=== PATIENT | female | born 1935 | race Caucasian/White ===

== ENCOUNTER 2023-02-13 15:49 | Emergency (ER) | payer MEDICARE, OTHER, SELFPAY ==
[2023-02-13] VITALS (17 sets, daily range): BP systolic 89–112; BP diastolic 49–77; PULSE 59–69; RESP 20; TEMP 36.7; O2SAT 92–96; BMI 24.0
--- NOTE | 2023-02-13 15:55 | ED_ITS ---
HPI - Syncope General Time Seen by Provider: 15:55 Date Seen: 02/13/23 Chief Complaint: Syncope/Fainted Stated Complaint: TIA Time Seen by Provider: 02/13/23 15:54 Source: patient, EMS, RN notes reviewed and old records reviewed Mode of arrival: EMS Limitations: altered mental status History of Present Illness HPI narrative: 88-year-old female who presents from [facility] for syncopal episode. Not much information is available as patient came unaccompanied but apparently had a syncopal episode about 90 minutes prior to ER evaluation, accompanied by about 10 minutes of so slurred speech by report. She has baseline neurologic and cognitive deficits and by report is back to her baseline now. No external sign of trauma and patient has no reported fall. Related Data Previous Rx's Medication Instructions Recorded cefdinir 300 mg capsule 300 mg PO BID 7 days #14 caps 02/13/23 Allergies Allergy/AdvReac Type Severity Reaction Status Date / Time No Known Allergies Allergy Verified 02/13/23 16:57 Review of Systems Status of ROS: Reports: 10 or more systems reviewed and unremarkable except as noted in History and below PFSH PFSH Social History Smoking Status: Former smoker Do you use any of these nicotine containing products: None How often do you have a drink containing alcohol: monthly or less How many standard drinks containing alcohol do you have on a typical day: 1 or 2 How often do you have six or more drinks on one occasion: Never AUDIT-C Alcohol total score: 1 Non-prescribed substance use: denies use Exam Narrative: Exam Narrative: General: Well-developed and well-nourished, no acute distress Head: Atraumatic and normocephalic Eyes: Pupils are equal reactive, extraocular motions intact, conjunctiva clear ENT: External nose and ears are normal, posterior pharynx without erythema or exudate Neck: No midline cervical tenderness, full spontaneous range of motion the neck, trachea midline, no adenopathy Heart: Regular rate and rhythm no murmurs or thrills Lungs: Clear to auscultation bilaterally without wheezes or crackles Abdomen: Soft, nontender, nondistended with active bowel sounds Musculoskeletal: No tenderness, deformity, or edema Neurologic: Awake alert, occasionally answers questions appropriately. Follows commands without difficulty, no weakness or pronator drift, no lower extremity drift. Dysconjugate gaze with lateral deviation of the right eye, also right facial droop. Both of these are reported to be chronic. Psych: Mood and affect are appropriate Skin: No rashes Const: Vital Signs, click to edit/add: Vital Signs - 24 hr 02/13/23 15:54 02/13/23 16:19 02/13/23 16:22 Temperature 98.1 F Pulse Rate 63 Pulse Rate [Pulse Oximeter] 59 L Respiratory Rate 20 Blood Pressure 89/54 L Blood Pressure [Le ft Upper Arm] 90/49 L Pulse Oximetry 94 93 Oxygen Delivery Me thod Room Air 02/13/23 16:45 02/13/23 16:50 02/13/23 16:53 Temperature Pulse Rate 69 59 L 59 L Pulse Rate [Pulse Oximeter] Respiratory Rate Blood Pressure 112/61 Blood Pressure [Le ft Upper Arm] Pulse Oximetry 95 95 94 Oxygen Delivery Me thod 02/13/23 17:00 02/13/23 17:02 02/13/23 17:03 Temperature Pulse Rate 66 62 62 Pulse Rate [Pulse Oximeter] Respiratory Rate Blood Pressure 93/56 L Blood Pressure [Le ft Upper Arm] Pulse Oximetry 93 93 94 Oxygen Delivery Me thod 02/13/23 17:15 02/13/23 17:17 02/13/23 17:30 Temperature Pulse Rate 61 63 61 Pulse Rate [Pulse Oximeter] Respiratory Rate Blood Pressure 101/49 L Blood Pressure [Le ft Upper Arm] Pulse Oximetry 96 95 94 Oxygen Delivery Me thod 02/13/23 17:32 02/13/23 17:52 02/13/23 17:54 Temperature Pulse Rate 66 65 Pulse Rate [Pulse Oximeter] Respiratory Rate Blood Pressure 99/52 L 112/68 Blood Pressure [Le ft Upper Arm] Pulse Oximetry 92 94 Oxygen Delivery Mo thod Course Course Hospital Course: Patient seen and examined, prior records reviewed. Patient presents today from [facility] with report of syncopal episode, no report of fall and no external signs of trauma. Patient has no complaints and no reported recent illness. Labs ordered along with head CT, EKG. Reevaluation(s) Time of Reevaluation #1: 18:38 Reevaluation #1: Labs independently interpreted by me with normal white blood cell count, slightly low hemoglobin which is stable for the patient, reassuring basic panel, negative troponin. Urinalysis is pending. Chest x-ray independently interpreted by me is negative for acute findings. CT scan of the head independently interpreted by me is negative for acute pathology. Patient stable for discharge with improvement in blood pressure after IV fluids. Time of Reevaluation #2: 19:32 Reevaluation #2: Urinalysis independently interpreted by me is consistent with infection, Rocephin IV will be given and patient will be discharged on Omnicef pending cultures. Stable for discharge, has been up and ambulating in the department without difficulty. Vital Signs Vital signs: Initial Vital Signs Temperature 98.1 F 02/13/23 15:54 Temperature Source Temporal Artery Scan 02/13/23 15:54 Pulse Rate 59 L 02/13/23 15:54 Respiratory Rate 02/13/23 15:54 Blood Pressure 90/49 L 02/13/23 15:54 Blood Pressure Mean 62 L 02/13/23 15:54 Blood Pressure Position Supine 02/13/23 15:54 Pulse Oximetry 94 02/13/23 15:54 Oxygen Delivery Method Room Air 02/13/23 15:54 Vital Signs Temperature 98.1 F 02/13/23 15:54 Pulse Rate 59 L 02/13/23 15:54 Respiratory Rate 02/13/23 15:54 Blood Pressure 90/49 L 02/13/23 15:54 Pulse Oximetry 94 02/13/23 15:54 Oxygen Delivery Method Room Air 02/13/23 15:54 Temperature 98.1 F 02/13/23 15:54 Pulse Rate 65 02/13/23 17:54 Respiratory Rate 02/13/23 15:54 Blood Pressure 112/68 02/13/23 17:54 Pulse Oximetry 94 02/13/23 17:54 Oxygen Delivery Method Room Air 02/13/23 15:54 MDM - Syncope Lab Data Labs: Lab Results 02/13/23 02/13/23 Range/Units 16:22 19:05 WBC 9.33 (4.50-11.00) K/uL RBC 3.82 L (4.30-5.90) m/uL Hgb 12.1 L (13.5-17.5) gm/dL Hct 37.6 (37.0-53.0) % MCV 98 (80-100) fL MCH 32 (26-34) pg MCHC 32 (32-36) gm/dL RDW Coeff of Silvano 12.6 (11.5-15.5) % Plt Count 293 (140-440) K/uL Neut % (Auto) 61.0 (42.0-72.0) % Lymph % (Auto) 22.5 (20-44) % [place] % (Auto) 10.6 (0.0-11.0) % Eos % (Auto) 5.3 (0.0-7.0) % Baso % (Auto) 0.5 (0.0-3.0) % Neut # (Auto) 5.69 (1.7-7.0) K/uL Lymph # (Auto) 2.10 (0.90-2.90) K/uL [place] # (Auto) 1.00 H (0.00-0.90) K/UL Eos # (Auto) 0.49 (0.00-0.50) K/uL Baso # (Auto) 0.05 (0.00-0.30) K/uL Abs Immat Gran (auto) 0.01 (0.00-0.30) K/uL Imm/Tot Granulo (auto) 0.1 % Sodium 140 (135-149) mmol/L Potassium 4.0 (3.6-5.1) mmol/L Chloride 106 (96-114) mmol/L Carbon Dioxide 28 (20-32) mmol/L BUN 25 (7-30) mg/dL Creatinine 1.5 (0.5-1.5) mg/dL Estimated Creat Clear 23.25 Estimated GFR 34 ml/min Glucose 99 (60-115) mg/dL Lactate 1.4 (0.5-1.9) mmol/L Calcium 8.8 (8.4-10.6) mg/dL Magnesium 1.8 (1.5-2.6) mg/dL Urine Color Dark yellow (Yellow) Urine Appearance Cloudy A (Clear) Urine pH 5.5 (5.0-8.5) Ur Specific [place] 1.025 (1.000-1.030) Urine Protein Trace A (Negative) Urine Glucose (UA) Negative (Negative) Urine Ketones 1+ A (Negative) Urine Blood Trace-intact A (Negative) Urine Nitrite Positive A (Negative) Urine Bilirubin Negative (Negative) Urine Urobilinogen >=8.0 A (0.2-1.0) Ur Leukocyte Esterase 2+ A (Negative) Urine RBC 0-2 (0-2) Urine WBC 50-100 A (0-5) Ur Squamous Epith Cells Moderate A (None-Few) Urine Bacteria Many A (None) ECG Data Attestation: I personally reviewed and interpreted this ECG as follows: ECG interpretation date: 02/13/23 ECG interpretation time: 14:51 Prior ECG tracings: not available for review Interpretation: Independently interpreted by me demonstrates sinus rhythm with sinus rhythm and first-degree AV block, right bundle-branch block, left anterior fascicular block, [place] 212, QTC 440. No prior for comparison. Discharge Plan Discharge Clinical Impression: Syncope due to orthostatic hypotension, Acute UTI Patient Disposition: Home w/ Parent or Adult Condition: Improved Instructions: Urinary Tract Infection in Women (DC), Syncope in Older Adults (ED) Activity Level: No Restrictions Discharge Diet: Regular Prescriptions: New cefdinir 300 mg capsule 300 mg PO BID 7 Days Qty: 14 0RF Stand Alone Forms: [email or web address] Info Instructions
--- NOTE | 2023-02-13 15:58 | CRLHL7_ITS ---
For Patients: As a result of the Cures Act, medical imaging exams and procedure reports are released immediately into your electronic medical record. You may view this report before your referring provider. If you have questions, please contact your health care provider. INDICATION: Syncope TECHNIQUE: Chest radiograph 1 view COMPARISON: None FINDINGS: Heart and mediastinal contours within normal limits. Coarse lung markings. Costophrenic sulci clear. No pneumothorax or focal pneumonia. No displaced rib fracture deformity. Clavicles intact. Right shoulder arthroplasty hardware noted. IMPRESSION: 1. No acute cardiopulmonary disease is seen. Dictated by Bryant Niño MD @ 02/13/2023 5:34:39 PM Dictated by: Bryant Niño MD @ 02/13/2023 17:34:45 (Electronically Signed)
--- NOTE | 2023-02-13 15:58 | CRLHL7_ITS ---
For Patients: As a result of the Century Cures Act, medical imaging exams and procedure reports are released immediately into your electronic medical record. You may view this report before your referring provider. If you have questions, please contact your health care provider. INDICATION: Syncope COMPARISON: none TECHNIQUE: A CT volumetric acquisition was performed of the brain without IV contrast. Please note that all CT scans at this facility use dose modulation, iterative reconstruction, and/or weight-based dosing when appropriate to reduce radiation dose to as low as reasonably achievable. FINDINGS: Senescent changes with mild generalized atrophy and chronic white matter changes. No hydrocephalus, hemorrhage, midline shift or extra-axial fluid collection. Basal ganglia calcifications. Small mucous retention cyst right frontal sinus. IMPRESSION: No hemorrhage or hydrocephalus. Please note that all CT scans at this facility use dose modulation, iterative reconstruction, and/or weight-based dosing when appropriate to reduce radiation dose to as low as reasonably achievable. Dictated by Brian Petty MD @ 02/13/2023 5:32:01 PM (Electronically Signed)
[2023-02-13 16:30] LABS: Lactate* 1.4 mmol/L (0.5-1.9)
[2023-02-13 16:31] LABS: Basophils Absolute Auto 0.05 K/uL (0.00-0.30); Basophils Percent Auto 0.5 % (0.0-3.0); Eosinophils Absolute Auto 0.49 K/uL (0.00-0.50); Eosinophils Percent Auto 5.3 % (0.0-7.0); Hematocrit 37.6 % (37.0-53.0); Hemoglobin* 12.1 gm/dL (13.5-17.5); Immature Granulocytes Abs Auto 0.01 K/uL (0.00-0.30); Immature Granulocytes Pct Auto 0.1 %; Lymphocytes Percent Auto 22.5 % (20-44); Mean Corpuscular HGB Conc 32 gm/dL (32-36); Mean Corpuscular Hemoglobin 32 pg (26-34); Mean Corpuscular Volume 98 fL (80-100); Monocytes Percent Auto 10.6 % (0.0-11.0); Neutrophils Absolute Auto 5.69 K/uL (1.7-7.0); Platelet Count* 293 K/uL (140-440); RDW Coefficient of Variation % 12.6 % (11.5-15.5); Red Blood Count 3.82 m/uL (4.30-5.90); Slide Review Reflex No; White Blood Count* 9.33 K/uL (4.50-11.00)
[2023-02-13 16:46] LABS: Chloride* 106 mmol/L (96-114); Sodium* 140 mmol/L (135-149)
[2023-02-13 16:49] LABS: Carbon Dioxide* 28 mmol/L (20-32); Creatinine* 1.5 mg/dL (0.5-1.5); Est. Creatinine Clearance* 23.25; Estimated Glomerular Filt Rate 34 ml/min
[2023-02-13 16:50] LABS: Blood Urea Nitrogen* 25 mg/dL (7-30); Calcium* 8.8 mg/dL (8.4-10.6); Glucose* 99 mg/dL (60-115); Magnesium* 1.8 mg/dL (1.5-2.6)
[2023-02-13] MEDS: 0.9 % SODIUM CHLORIDE 1000 ml 1,000 ML IV (16:58)
[2023-02-13 19:13] LABS: Appearance Urine Cloudy (Clear); Bilirubin Urine Negative (Negative); Blood Urine Trace-intact (Negative); Color Urine Dark yellow (Yellow); Glucose Urine Negative (Negative); Ketones Urine 1+ (Negative); Leukocyte Esterase Urine 2+ (Negative); Nitrite Urine Positive (Negative); Protein Urine Trace (Negative); Specific Gravity Urine 1.025 (1.000-1.030); Urobilinogen Urine >=8.0 (0.2-1.0); pH Urine 5.5 (5.0-8.5)
[2023-02-13 19:20] LABS: RBC Urine 0-2 (0-2); WBC Urine 50-100 (0-5)
[2023-02-13 19:21] LABS: Bacteria Urine Many; Squamous Epithelial Cell Urine Moderate (None-Few)
--- NOTE | 2023-02-13 19:34 | ED.NURSE ---
[employer] did assist Pt to BS commode after liter of NS administered. Pt was unable to void. Verbal order to straight cath for urine sample per Dr. Duran. Pt did resist upon catheterization and tried to hit, kick, and bite. Staff did not persist and allowed Pt to rest without collecting urine sample. Pt then did ambulate to BR with standby assist for small amount urine output.
[2023-02-13] MEDS: cefTRIAXone 1 GM in 0.9 % SODIUM CHLORIDE Mini-bag 100 ML IVPB (19:43)
== END 2023-02-13 20:05 | disposition home or self-care (01) ==
PROVIDERS: Emergency Provider Family Medicine
DX: I95.1 Orthostatic hypotension (principal); N39.0 Urinary tract infection, site not specified; R55 Syncope and collapse
CPT/HCPCS: 36415; 70450; 71045; 80048; 81001; 83605; 83735; 84484; 85025; 87086; 87186; 93005; 96361; 96374; 99284; 99285; J0696; J7030